=== PATIENT | female | born 1960 | race Caucasian/White ===

== ENCOUNTER 2020-08-10 12:22 | Emergency (ER) | payer BC, MEDICAID, OTHER ==
[~2020-08-10] VITALS: Ht 167.6 cm; Wt 60.6 kg
[2020-08-10] MEDS ORDERED: ACETAMINOPHEN 325 MG TABLET ONE (14:38)
[2020-08-10 14:54] LABS: ANION GAP 6 mmol/L (5-15); CHLORIDE 108 mmol/L (98-107)
[2020-08-10 14:57] LABS: BASOPHILS % (AUTO) 1 % (0-1); EOSINOPHILS % (AUTO) 1 % (1-7); LYMPHOCYTES % (AUTO) 29 % (22-44); MEAN CORPUSCULAR HEMOGLOBIN 28.6 pg (27.0-34.8); MEAN CORPUSCULAR HGB CONC 33.5 g/dL (32.4-35.8); MONOCYTES % (AUTO) 8 % (2-9); NEUTROPHILS % (AUTO) 62 % (42-75); PLATELET COUNT 239 x10^3/uL (130-400); RED BLOOD COUNT 4.99 x10^6/uL (3.82-5.3); RED CELL DISTRIBUTION WIDTH 13.9 % (9.6-15.2)
[2020-08-10 14:58] LABS: TROPONIN I < 0.015 ng/mL (0.000-0.045)
[2020-08-10] MEDS ORDERED: ACETAMINOPHEN 325 MG TABLET PO ONE (15:00)
[2020-08-10 15:02] LABS: MD NO
[2020-08-10] MEDS ORDERED: LISINOPRIL 10 MG TABLET PO ONE (16:30)
[2020-08-10] MEDS ORDERED: LISINOPRIL 10 MG TABLET ONE (16:35)
[2020-08-10 17:01] VITALS: BP 168/102
== END 2020-08-10 17:03 | disposition home or self-care (01) ==
LOC: ED 16:27
DX: R07.89 Other chest pain (principal); R94.31 Abnormal electrocardiogram [ECG] [EKG]; I10 Essential (primary) hypertension; I25.2 Old myocardial infarction
CPT/HCPCS: 36415; 71045; 80048; 82040; 84484; 85025; 93005; 99283; 99285

== ENCOUNTER 2020-10-26 23:04 | Inpatient (IN) | payer MEDICAID ==
[~2020-10-26] VITALS: Ht 167.6 cm; Wt 60.0 kg
[2020-10-26] MEDS ORDERED: NITROGLYCERIN SINGLE TAB 0.4 MG SL ONE (23:12)
[2020-10-26] MEDS ORDERED: MORPHINE SULFATE 4 MG/ML, 1ML ONE (23:13)
[2020-10-26] MEDS ORDERED: NITROGLYCERIN/D5W PMX 250 ML ONE (23:18)
[2020-10-26] MEDS ORDERED: ASPIRIN 81 MG TABLET CHEW PO ONE (23:30)
[2020-10-26] MEDS ORDERED: MORPHINE SULFATE 4 MG/ML, 1ML IVPush PRN (23:30)
[2020-10-26] MEDS ORDERED: ONDANSETRON 2MG/ML, 2ML IVPush ONE (23:30)
[2020-10-26] MEDS ORDERED: NITROGLYCERIN/D5W PMX 250 ML IV PRN (23:30)
--- NOTE | 2020-10-26 23:31 | NUR ---
[facility] called @ 2311 Called Cards @ [id number] Dr. Graham came in @ [id number]
[2020-10-26] MEDS ORDERED: VERAPAMIL 2.5 MG/ML, 2ML ONE (23:34)
[2020-10-26] MEDS ORDERED: FENTANYL PF 100 MCG/2ML ONE (23:34)
[2020-10-26] MEDS ORDERED: TICAGRELOR 90 MG TABLET ONE (23:34)
[2020-10-26] MEDS ORDERED: HEPARIN 1,000 UNITS/ML, 10ML ONE (23:34)
[2020-10-26] MEDS ORDERED: MIDAZOLAM 1 MG/ML, 5ML ONE (23:34)
[2020-10-26] MEDS ORDERED: LIDOCAINE-MPF 1%, 5ML ONE (23:34)
[2020-10-26] MEDS ORDERED: BIVALIRUDIN 250 MG ONE (23:34)
[2020-10-26 23:38] LABS: BASOPHILS % (AUTO) 1 % (0-1); EOSINOPHILS % (AUTO) 1 % (1-7); LYMPHOCYTES % (AUTO) 18 % (22-44); MEAN CORPUSCULAR HEMOGLOBIN 27.9 pg (27.0-34.8); MEAN CORPUSCULAR HGB CONC 33.7 g/dL (32.4-35.8); MEAN PLATELET VOLUME 7.6 fL (7.4-10.4); MONOCYTES % (AUTO) 7 % (2-9); NEUTROPHILS % (AUTO) 74 % (42-75); PLATELET COUNT 208 x10^3/uL (130-400); RED BLOOD COUNT 4.81 x10^6/uL (3.82-5.3); RED CELL DISTRIBUTION WIDTH 14.1 % (9.6-15.2)
[2020-10-26 23:39] LABS: MD NO
--- NOTE | 2020-10-26 23:48 | NUR ---
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 pt very anxious, all beongings with pt to livestock laborer.
[2020-10-26 23:50] LABS: ANION GAP 9 mmol/L (5-15); CALCIUM 9.6 mg/dL (8.5-10.1); CHLORIDE 109 mmol/L (98-107); CREATININE 1.07 mg/dL (0.55-1.02)
[2020-10-26 23:54] LABS: TROPONIN I < 0.015 ng/mL (0.000-0.045)
[2020-10-27] MEDS ORDERED: MORPHINE SULFATE 4 MG/ML, 1ML IVPush PRN
[2020-10-27] MEDS ORDERED: NITROGLYCERIN/D5W PMX 250 ML IV PRN (00:30)
[2020-10-27] MEDS ORDERED: SODIUM CHLORIDE 0.9% 1,000 ML IV SCH (01:00)
[2020-10-27] MEDS ORDERED: BIVALIRUDIN 250 MG in SODIUM CHLORIDE 0.9% 50 ML IV SCH (01:00)
[2020-10-27] MEDS ORDERED: ONDANSETRON ODT 4 MG PO PRN (01:30)
[2020-10-27] MEDS ORDERED: POLYETHYLENE GLYCOL 17 GM PACKET PO PRN (01:30)
[2020-10-27] MEDS ORDERED: DOCUSATE 100 MG CAPSULE PO PRN (01:30)
[2020-10-27] MEDS ORDERED: ONDANSETRON 2MG/ML, 2ML IVPush PRN ×2 (01:30)
[2020-10-27] MEDS ORDERED: ACETAMINOPHEN 325 MG TABLET PO PRN (01:30)
[2020-10-27] MEDS ORDERED: PROMETHAZINE 25 MG/ML, 1ML IM PRN (01:30)
[2020-10-27] MEDS ORDERED: BISACODYL 10 MG SUPP PR PRN (01:30)
[2020-10-27] MEDS ORDERED: hydrALAzine 20 MG/ML, 1ML IVPush PRN (01:30)
[2020-10-27] MEDS: ATORVASTATIN 80 MG TABLET PO SCH ×2 (02:19→21:02)
[2020-10-27] MEDS ORDERED: LISI10TA19 PO (02:51)
[2020-10-27 04:22] LABS: BASOPHILS % (AUTO) 0 % (0-1); EOSINOPHILS % (AUTO) 0 % (1-7); LYMPHOCYTES % (AUTO) 13 % (22-44); MEAN CORPUSCULAR HEMOGLOBIN 28.1 pg (27.0-34.8); MEAN CORPUSCULAR HGB CONC 33.1 g/dL (32.4-35.8); MEAN PLATELET VOLUME 7.7 fL (7.4-10.4); MONOCYTES % (AUTO) 5 % (2-9); NEUTROPHILS % (AUTO) 81 % (42-75); PLATELET COUNT 175 x10^3/uL (130-400); RED BLOOD COUNT 4.59 x10^6/uL (3.82-5.3)
[2020-10-27 04:23] LABS: MD NO
[2020-10-27 04:34] LABS: ALBUMIN 3.5 g/dL (3.4-5.0); CHLORIDE 110 mmol/L (98-107)
[2020-10-27 04:46] LABS: ALANINE AMINOTRANSFERASE 37 U/L (12-78); ALKALINE PHOSPHATASE 84 U/L (45-117); ANION GAP 5 mmol/L (5-15); BILIRUBIN,TOTAL 0.4 mg/dL (0.2-1.0); CALCIUM 8.8 mg/dL (8.5-10.1); CHOL/HDL RATIO 3.3; CHOLESTEROL, TOTAL 166 mg/dL (140-239); CREATININE 0.99 mg/dL (0.55-1.02); HDL CHOL % 31 % (28-40); HDL CHOLESTEROL (DIRECT) 51 mg/dL (40-60); LDL CHOLESTEROL,CALCULATED 102 mg/dL (54-169); TOTAL PROTEIN 6.3 g/dL (6.4-8.2); TRIGLYCERIDES 65 mg/dL (50-200); VLDL CHOLESTEROL 13 mg/dL (0-25)
[2020-10-27] MEDS ORDERED: METOPROLOL TARTRATE 25 MG TAB PO SCH (06:00)
[2020-10-27] MEDS ORDERED: METOPROLOL TARTRATE 25 MG TAB PO ONE (08:30)
[2020-10-27] MEDS: OXYcodone IR 5MG TABLET PO PRN ×2 (08:40→21:03)
[2020-10-27] MEDS: ASPIRIN 81 MG TABLET EC PO SCH (09:00)
[2020-10-27] MEDS ORDERED: LISINOPRIL 10 MG TABLET PO SCH (09:00)
[2020-10-27] MEDS: TICAGRELOR 90 MG TABLET PO SCH ×2 (09:00→21:03)
[2020-10-27] MEDS: METOPROLOL TARTRATE 25 MG TAB PO SCH (17:48)
[2020-10-28] MEDS: OXYcodone IR 5MG TABLET PO PRN (05:10)
[2020-10-28 05:58] LABS: ALBUMIN 3.7 g/dL (3.4-5.0); ANION GAP 7 mmol/L (5-15); CALCIUM 9.2 mg/dL (8.5-10.1); CHLORIDE 108 mmol/L (98-107)
[2020-10-28 06:02] LABS: ALANINE AMINOTRANSFERASE 83 U/L (12-78); ALKALINE PHOSPHATASE 89 U/L (45-117); BILIRUBIN, DIRECT 0.2 mg/dL (0.1-0.2); BILIRUBIN,INDIRECT 0.6 mg/dL (0.0-2.0); BILIRUBIN,TOTAL 0.8 mg/dL (0.2-1.0); CREATININE 0.98 mg/dL (0.55-1.02); TOTAL PROTEIN 6.9 g/dL (6.4-8.2)
[2020-10-28] MEDS: METOPROLOL TARTRATE 25 MG TAB PO SCH (06:20)
[2020-10-28] MEDS: ASPIRIN 81 MG TABLET EC PO SCH (08:40)
[2020-10-28] MEDS: LISINOPRIL 20 MG TABLET PO SCH (08:40)
[2020-10-28] MEDS: TICAGRELOR 90 MG TABLET PO SCH ×2 (08:40→20:35)
[2020-10-28 14:00] VITALS: BP 136/85
[2020-10-28] MEDS: METOPROLOL TARTRATE 50 MG TAB PO SCH (17:36)
[2020-10-28 19:05] VITALS: BP 130/80
[2020-10-28] MEDS: ATORVASTATIN 80 MG TABLET PO SCH (20:35)
[2020-10-29 01:07] VITALS: BP 135/86
[2020-10-29 05:54] LABS: ALBUMIN 3.7 g/dL (3.4-5.0); ANION GAP 6 mmol/L (5-15); CALCIUM 9.4 mg/dL (8.5-10.1); CHLORIDE 108 mmol/L (98-107); CREATININE 0.99 mg/dL (0.55-1.02)
[2020-10-29 05:57] LABS: ALANINE AMINOTRANSFERASE 71 U/L (12-78); ALKALINE PHOSPHATASE 92 U/L (45-117); BILIRUBIN,TOTAL 0.7 mg/dL (0.2-1.0); TOTAL PROTEIN 7.4 g/dL (6.4-8.2)
[2020-10-29] MEDS: METOPROLOL TARTRATE 50 MG TAB PO SCH (06:02)
[2020-10-29 06:41] VITALS: BP 127/86
[2020-10-29] MEDS: MAGNESIUM OXIDE 400 MG TABLET PO SCH (09:34)
[2020-10-29] MEDS: ASPIRIN 81 MG TABLET EC PO SCH (09:34)
[2020-10-29] MEDS: TICAGRELOR 90 MG TABLET PO SCH ×2 (09:34→21:46)
[2020-10-29] MEDS: LISINOPRIL 20 MG TABLET PO SCH (09:35)
[2020-10-29 12:06] VITALS: BP 127/74
[2020-10-29] MEDS ORDERED: METOPROLOL TARTRATE 25 MG TAB PO SCH (18:00)
[2020-10-29 19:43] VITALS: BP 135/85
[2020-10-29] MEDS: ATORVASTATIN 80 MG TABLET PO SCH (21:46)
[2020-10-30 05:19] VITALS: BP 110/78
[2020-10-30] MEDS ORDERED: METO25TA91 PO (09:17)
[2020-10-30] MEDS ORDERED: LISI-170 PO (09:17)
[2020-10-30] MEDS ORDERED: ATOR-2 PO (09:17)
[2020-10-30] MEDS ORDERED: ASPI81TA45 PO (09:17)
[2020-10-30] MEDS ORDERED: TICA90TA PO (09:17)
[2020-10-30] MEDS: ASPIRIN 81 MG TABLET EC PO SCH (10:35)
[2020-10-30] MEDS: TICAGRELOR 90 MG TABLET PO SCH (10:36)
[2020-10-30] MEDS: MAGNESIUM OXIDE 400 MG TABLET PO SCH (10:36)
[2020-10-30] MEDS: LISINOPRIL 20 MG TABLET PO SCH (10:36)
[2020-10-31] MEDS ORDERED: METOPROLOL SUCCINATE 25 MG TAB.ER.24H PO SCH (06:00)
== END 2020-10-30 11:30 | disposition home or self-care (01) | DRG 247 ==
LOC: ED 23:30 → EDIP 10-27 00:09 → CCU 10-27 00:42 → 5SO 10-28 12:03
PROVIDERS: ADMIT Internal Medicine; ATTEND Hospitalist
PROC: 027035Z Dilation of Coronary Artery, One Artery with Two Drug-eluting Intraluminal Devices, Percutaneous Approach (ICD-10-PCS; principal; 2020-10-27)
PROC: 4A023N7 Measurement of Cardiac Sampling and Pressure, Left Heart, Percutaneous Approach (ICD-10-PCS; 2020-10-27)
PROC: B2111ZZ Fluoroscopy of Multiple Coronary Arteries using Low Osmolar Contrast (ICD-10-PCS; 2020-10-27)
PROC: B2151ZZ Fluoroscopy of Left Heart using Low Osmolar Contrast (ICD-10-PCS; 2020-10-27)
DX: I21.19 ST elevation (STEMI) myocardial infarction involving other coronary artery of inferior wall (principal); I47.2 Ventricular tachycardia; I50.40 Unspecified combined systolic (congestive) and diastolic (congestive) heart failure; N13.1 Hydronephrosis with ureteral stricture, not elsewhere classified; E78.5 Hyperlipidemia, unspecified; F14.10 Cocaine abuse, uncomplicated; F17.200 Nicotine dependence, unspecified, uncomplicated; I11.0 Hypertensive heart disease with heart failure; I25.5 Ischemic cardiomyopathy; B19.20 Unspecified viral hepatitis C without hepatic coma; R00.1 Bradycardia, unspecified; Z82.49 Family history of ischemic heart disease and other diseases of the circulatory system
CPT/HCPCS: 36415; 71045; 74176; 76705; 80048; 80053; 80061; 80074; 80076; 82040; 83036; 83735; 84100; 84443; 84484; 85025; 87081; 87521; 93005; 93306; 93356; 93458; 96374; 99156; 99157; 99291; C1769; C1894; G0378; J0583; J1644; J2250; J3010; C1725; C1874; C1887; J2270; J7030; Q9967